=== PATIENT | female | born 1985 | race Caucasian/White ===

== ENCOUNTER 2022-09-13 14:05 | Emergency (ER) | payer OTHER ==
[~2022-09-13] VITALS: Ht 170.2 cm; Wt 70.3 kg
[~2022-09-13 14:05] MED LIST: NO MEDS
[2022-09-13 14:15] VITALS: BP 148/109
[2022-09-13 14:31] VITALS: BP 82/60
[2022-09-13 14:35] VITALS: BP 79/49
[2022-09-13 14:38] VITALS: BP 176/94
[2022-09-13] MEDS ORDERED: OMNI-PAC300 MG PO (15:17)
[2022-09-13 15:30] VITALS: BP 176/94
== END 2022-09-13 15:32 | disposition home or self-care (01) | DRG 605 ==
LOC: ED 14:05
PROC: 0HQEXZZ Repair Left Lower Arm Skin, External Approach (ICD-10-PCS; principal; 2022-09-13)
PROC: 0HQDXZZ Repair Right Lower Arm Skin, External Approach (ICD-10-PCS; 2022-09-13)
DX: S61.512A Laceration without foreign body of left wrist, initial encounter (principal); S61.511A Laceration without foreign body of right wrist, initial encounter; W25.XXXA Contact with sharp glass, initial encounter; Y93.89 Activity, other specified; Y92.009 Unspecified place in unspecified non-institutional (private) residence as the place of occurrence of the external cause